=== PATIENT | male | born 1975 | race Caucasian/White ===

== ENCOUNTER → 2019-09-14 | Outpatient (REF) | payer BC ==
[2019-09-14 20:22] LABS: HEMATOCRIT 42.9 % (42.0-52.0); HEMOGLOBIN 14.7 g/dl (13.5-17.5)
[2019-09-14 20:32] LABS: BLOOD UREA NITROGEN 9 MG/DL (7-18); CALCIUM LEVEL 8.8 MG/DL (8.5-10.1); CARBON DIOXIDE LEVEL 29 MEQ/L (21-32); CHLORIDE LEVEL 103 MEQ/L (98-107); CHOLESTEROL LEVEL 195 MG/DL (<200); CREATININE FOR GFR 0.74 MG/DL (0.70-1.30); GLOMERULAR FILTRATION RATE > 60.0 (>60); GLUCOSE, FASTING 171 MG/DL (70-100); HDL CHOLESTEROL 39 MG/DL (>40); LDL CHOLESTEROL 115 MG/DL (<100); NON-HDL-C 156 MG/DL; POTASSIUM SERUM 4.6 MEQ/L (3.5-5.1); SODIUM LEVEL 136 MEQ/L (136-145); TRIGLYCERIDES LEVEL 203 MG/DL (<150)
[2019-09-14 20:57] LABS: HEMOGLOBIN A1c 7.1 %
[2019-09-14 21:10] LABS: MALB URINE SIEMENS 67.9 MG/L; MAU/CREAT RATIO 33.1 MCG/MG (0.0-30.0)
== END ==
LOC: M SFHCLERA 14:26
PROVIDERS: ATTEND Family Medicine
DX: E11.9 Type 2 diabetes mellitus without complications (principal)

== ENCOUNTER → 2022-01-23 | Outpatient (CLI) | payer BC | LOC: M SLEEP HO 10:32 | PROVIDERS: ATTEND Internal Medicine Cardiovascular Disease | DX: R06.83 Snoring (principal) ==

== ENCOUNTER 2025-02-20 06:59 | Day surgery (SDC) | payer BC ==
[~2025-02-20] VITALS: Ht 172.7 cm; Wt 107.0 kg
[~2025-02-20 06:59] MED LIST: ALLE180T33 PO; ATOR1TAB21 PO; JARD1TAB3 PO; LIDOCAINE 2% 100MG/5ML SDV (FOR ANES.) As Ordered ONE; LISI20TA33 PO; METF500T13 PO; SEMA1PEN2; propofoL 200 MG/20 ML VIAL As Ordered ONE
[2025-02-20 08:45] VITALS: BP 120/78; O2SAT 97
== END 2025-02-20 08:51 | disposition home or self-care (01) ==
LOC: M OPP 06:59
PROVIDERS: ATTEND Internal Medicine Gastroenterology
DX: Z12.11 Encounter for screening for malignant neoplasm of colon (principal); D12.3 Benign neoplasm of transverse colon; K64.8 Other hemorrhoids; Z88.0 Allergy status to penicillin; Z88.6 Allergy status to analgesic agent; Z79.84 Long term (current) use of oral hypoglycemic drugs; Z79.899 Other long term (current) drug therapy